=== PATIENT | female | born 1995 | race Two or more races ===

== ENCOUNTER 2019-11-11 23:55 | Emergency (ER) | payer SELFPAY ==
[~2019-11-11] VITALS: Ht 157.5 cm; Wt 59.0 kg
--- NOTE | 2019-11-12 00:05 | NUR ---
PT AAOX4. 3 months . C/O 4 hours of Abd pain. Also reports vaginal bleeding for the last 4 hours. Placed on monitor and pulse ox. No acute distress noted. vss. Awaiting MD for eval. Will continue to monitor.
--- NOTE | 2019-11-12 00:10 | NUR ---
WRITER PRODUCER AT BEDSIDE
--- NOTE | 2019-11-12 00:37 | NUR ---
AWAITING URINE SAMPLE.
--- NOTE | 2019-11-12 01:03 | NUR ---
urine sent to lab
[2019-11-12 01:57] LABS: APPEARANCE,URINE CLOUDY (CLEAR); BILIRUBIN,URINE NEGATIVE (NEGATIVE); BLOOD, URINE LARGE Ery/uL (NEGATIVE); COLOR,URINE RED (YELLOW); KETONES,URINE NEGATIVE (NEGATIVE); LEUKOCYTE ESTERASE ,URINE MODERATE (NEGATIVE); NITRITE, URINE POSITIVE (NEGATIVE); PROTEIN,URINE >=300 mg/dl (NEGATIVE); UGLUCOSE NEGATIVE (NEGATIVE); UROBILINOGEN,URINE 0.2 EU/dL (0.2)
[2019-11-12 02:07] LABS: BACTERIA,URINE Few /HPF (None Seen); RBC,URINE TOO NUMEROUS TO COUN /HPF (0-2); SQUAMOUS EPITHELIAL CELL,UR Few /HPF (None Seen)
--- NOTE | 2019-11-12 02:23 | NUR ---
Patient is resting comfortably in bed. Easily aroused. VSS. Ambulated outside to speak to .
--- NOTE | 2019-11-12 03:19 | NUR ---
MD WAS AT BEDSIDE TALKING WITH PT AND PT'S .
--- NOTE | 2019-11-12 03:19 | NUR ---
Patient discharged to home in stable condition. Written and verbal after care instructions given. Patient verbalizes understanding of instruction. Pt ambulatory with a steady gait
[2019-11-12 03:21] VITALS: BP 111/68
== END 2019-11-12 03:21 | disposition home or self-care (01) ==
LOC: ER 11-12 00:01
DX: O03.9 Complete or unspecified spontaneous abortion without complication (principal); R11.0 Nausea; R10.30 Lower abdominal pain, unspecified
CPT/HCPCS: 36415; 76856-TC; 81000-TC; 84702-TC; 86850-TC; 87086-TC